=== PATIENT | female | born 1990 | race Caucasian/White ===

== ENCOUNTER 2019-12-29 11:14 | Outpatient (CLI) | payer OTHER, SELFPAY ==
--- NOTE | 2019-12-29 11:15 | ECG_ITS ---
Measurements Intervals [place] Rate: 87 P: 23 OK: 132 QRS: 15 QRSD: 94 T: 32 QT: 355 QTc: 429 Interpretive Statements SINUS RHYTHM NONSPECIFIC T-WAVE ABNORMALITY- ANTEROLATERAL LEADS BORDERLINE ECG Electronically Signed On 12-29-2019 12:13:57 CDT by Eliseo Anguiano D.O.
[2019-12-29 12:01] LABS: Blood Urea Nitrogen 15 mg/dL (7-17); Calcium 9.7 mg/dL (8.4-10.2); Carbon Dioxide 26 mmol/L (22-30); Chloride 103 mmol/L (98-107); Estimated Glomerular Filt Rate > 60; Glucose 94 mg/dL (65-105); Potassium 4.5 mmol/L (3.4-5.0); Sodium 137 mmol/L (137-145)
== END 2019-12-29 11:15 | disposition home or self-care (01) ==
LOC: ANHSURGERY 11:15
PROVIDERS: Anesthesiology; PCP Nurse Practitioner Family; Visit Provider Surgery Plastic and Reconstructive Surgery
DX: I10 Essential (primary) hypertension (principal); R94.31 Abnormal electrocardiogram [ECG] [EKG]
CPT/HCPCS: 36415; 80048; 93005

== ENCOUNTER 2020-01-08 01:59 | Outpatient (CLI) | payer OTHER, SELFPAY ==
[2020-01-08 23:05] LABS: SARS-CoV-2 RNA PCR Negative
== END 2020-01-08 02:00 | disposition home or self-care (01) ==
LOC: ANHCOVIDDT 01:59
PROVIDERS: PCP Nurse Practitioner Family; Visit Provider Surgery Plastic and Reconstructive Surgery
DX: Z01.812 Encounter for preprocedural laboratory examination (principal); Z11.59 Encounter for screening for other viral diseases
CPT/HCPCS: 87635; C9803; U0003

== ENCOUNTER 2020-01-11 01:16 | Day surgery (SDC) | payer OTHER, SELFPAY ==
[2019-12-27 10:16] VITALS: BMI 31.6
[2020-01-11] VITALS (8 sets, daily range): BP systolic 108–124; BP diastolic 70–78; PULSE 82–105; RESP 14–18; TEMP 36.2–36.6; O2SAT 96–100
--- NOTE | 2020-01-11 09:54 | P.PNAN_ITS ---
Anes - Initial Pre Proc Eval Procedure: Operation Date: 01/11/20 10:30 Proposed Procedures p Bilateral Reduction Mammoplasty - Nj Dietrich MD Date/Time: 01/11/20 09:54 Surgeon: Nj Dietrich MD Pre Op Diagnosis: Macromastia Patient Data Age: 30 Gender: F Height: 5 ft 1 in Weight: 75.4 kg Last Vital Signs Temp 97.2 F L 01/11/20 09:41 Pulse 85 01/11/20 09:41 Resp 16 01/11/20 09:41 BP 108/74 01/11/20 09:41 Pulse Ox 100 01/11/20 09:41 Allergies Allergy/AdvReac Type Severity Reaction Status Date / Time No Known Allergies Allergy Verified 12/29/19 08:59 Home Medications Medication Instructions Recorded Confirmed Type carvedilol 25 mg tablet 25 mg PO Q12H 10/12/19 01/11/20 History citalopram 10 mg tablet 10 mg PO DAILY 10/12/19 01/11/20 History lisinopril 5 mg tablet 5 mg PO DAILY 10/12/19 01/11/20 History spironolactone 25 1 tablet PO DAILY 10/12/19 12/27/19 History mg-hydrochlorothiazide 25 mg tablet Singulair 10 mg PO DAILY 12/27/19 01/11/20 History alprazolam [Xanax] 0.5 mg PO PRN PRN 12/27/19 01/11/20 History fluticasone propionate [Flonase 1 spray INTRANASAL DAILY 12/27/19 01/11/20 History Allergy Relief] hydrocodone 5 mg-acetaminophen 325 1 tablet PO Q6H PRN #15 tablet 12/29/19 01/11/20 Rx mg tablet ondansetron HCl 4 mg tablet 4 mg PO Q6H PRN #30 tablet 12/29/19 01/11/20 Rx Patient hx anesthesia problems: none Family hx anesthesia problems: none PMFSH Past Medical History Medical History (Updated 01/11/20 @ 09:53 by Brayan Hudson MD) Cardiomyopathy Depression Hypertension Surgical History Surgical History History of appendectomy 2007 History of delivery 2014 History of gastric restrictive surgery 2017 Social History Social History (Updated 10/12/19 @ 14:48 by Blaire Chappell [facility]) Smoking packs per day: 0.5 Smoking cigarettes per day: 10.0 Years smoked: 10 Smoking pack-years: 5.00 Smoking status: Former smoker Tobacco type: cigarettes Smoking end date: 06/16/16 Alcohol intake: never Drinks per week: 1 Substance use: never Spiritual care concerns: No Anes - Eval Final PreProcedure Day of Procedure 01/11/20 09:54 Patient weight: overweight Heart: regular rate and rhythm Lungs: clear to auscultation Airway: Mallampati scale class III Neurological: alert and oriented Last oral intake: >/= 8 hours ASA classification: II Emergent: no Anesthetic plan: proceed Anesthesia type and monitoring: general ETT and standard monitoring Informed Consent: The patient's anesthetic plan and its attendant risks and benefits were discussed with the patient/family/POA. Questions were solicited and answers provided to the satisfaction of the patient/family/POA.
[2020-01-11 10:17] LABS: Urine Cotinine NEGATIVE
--- NOTE | 2020-01-11 10:45 | WPDHPUPDATE1 ---
History and Physical Update Update Date/Time: 01/11/20 10:45 History and Physical has been reviewed, including an updated exam of the patient. There are NO changes in the patient's condition. Risks, benefits, and alternatives have been discussed and questions answered. Patient agrees to proceed with procedure.
[2020-01-11] MEDS: LACTATED RINGERS 1,000 ML 30 ML IV CONT ×2 (10:51→14:07)
--- NOTE | 2020-01-11 10:51 | PM.PROC ---
Procedure Note - Detailed Date of procedure: 01/11/20 Pre-op diagnosis: Macromastia Post-op diagnosis: same Procedure performed: Bilateral breast reduction Description of procedure: She is here today for bilateral breast reduction. Previously and again today the risks, benefits, alternatives were discussed in extensive detail. I wanted her to be very realistic about the risks involved as well as expectations. We discussed aftercare and what to monitor for. She understands we can never guarantee final breast size and there will always be asymmetry. I was very upfront and honest about the risks of sensation change and even nipple loss (). Made sure answered all of her questions to her satisfaction today and consent was obtained. She was marked in the preoperative holding area with their verification. The patient was taken to the operating room placed supine on the operating table. Anesthesia was provided by anesthesiology. She was prepped and draped in a standard sterile fashion. A surgical time-out was taken. Stab incisions were made and I tumessed with a tumescent solution. I marked out the nipple-areolar complex at 42 mm. I then de-epithelialized the pedicle. The pedicle was well left well more than 2 cm in thickness. I then removed the inferior portion of the breast as well as the central keel to get shape based on preoperative planning. At this point copiously irrigated with saline solution and verified a strict hemostasis. I reapproximated the pillars using a 2-0 PDS as well as along the IMF. I tailor tacked the breast into place with wilman. She was placed in a sitting position. I verified the nipple-areolar complex position based on preoperative markings, intraoperative measurements, and observation which were in full agreement. This nipple-areolar complex was marked at 42 mm in size. I then placed supine and de-epithelialized this. Nipple-areolar complex was inset with 3-0 Monocryl. I closed the vertical incision with 3-0 Monocryl in the IMF with 3-0 stratafix. Then everything was closed using a running subcuticular 4-0 Monocryl followed by Steri-Strips. A dressing was placed followed by surgical bra. Patient was awoke and taken to PACU without difficulty. All instrument sponge counts were correct at the end of the case. Anesthesia: GLMA Surgeon: Nj Dietrich MD Estimated blood loss (mL): 30 Drains: No Packing: No Pathology: yes (Bilateral breast tissue) Complications: No immediate complications Condition: stable Disposition: PACU Findings: Superior medial pedicle, inverted t Right: 1351 grams Left: 1302 grams
[2020-01-11] MEDS: ceFAZolin 2 GM/D5W 50 ML 2 GM/50 ML BAG IVPB (11:05)
== END 2020-01-11 16:00 | disposition home or self-care (01) ==
PROVIDERS: PCP Nurse Practitioner Family; Visit Provider Surgery Plastic and Reconstructive Surgery
PROC: 0HBV0ZZ Excision of Bilateral Breast, Open Approach (ICD-10-PCS; CPT 19318; principal; 2020-01-11 10:30)
DX: N62 Hypertrophy of breast (principal); N60.32 Fibrosclerosis of left breast; N60.31 Fibrosclerosis of right breast; N60.42 Mammary duct ectasia of left breast; N60.41 Mammary duct ectasia of right breast; I42.9 Cardiomyopathy, unspecified; I10 Essential (primary) hypertension; F32.9 Major depressive disorder, single episode, unspecified; Z87.891 Personal history of nicotine dependence
CPT/HCPCS: 19318; 36415; 80307; 87635; 88305; A9270; C9803; J0171; J0690; J1100; J1170; J2250; J2405; J2704; J2710; J3010; J7120; U0003